=== PATIENT | female | born 1970 | race Caucasian/White ===

== ENCOUNTER → 2019-08-08 | Outpatient (CLI) | payer OTHER ==
--- NOTE | 2019-08-08 12:05 | Diagnostic Imaging Report ---
INDICATION: Right-sided back pain. TIME OF EXAM: 11:48 a.m. COMPARISON: No prior studies are available for comparison. The heart size is normal. The pulmonary vascularity is unremarkable. The lungs are clear. No infiltrate, effusion or pneumothorax is detected. IMPRESSION: No acute cardiopulmonary process is detected. Dictated by: Dictated on workstation # [id number]
[2019-08-08 12:37] LABS: EOSINOPHILS % (AUTO) 1 % (0-10); HEMATOCRIT 43 % (35-52); HEMOGLOBIN 13.8 G/DL (11.5-16.0); LYMPHOCYTES % (AUTO) 24 % (12-44); MEAN CORPUSCULAR HEMOGLOBIN 29 PG (25-34); MEAN CORPUSCULAR HGB CONC 32 G/DL (32-36); MEAN CORPUSCULAR VOLUME 89 FL (80-99); MEAN PLATELET VOLUME 10.3 FL (7.4-10.4); MONOCYTES % (AUTO) 5 % (0-12); NEUTROPHILS % (AUTO) 70 % (42-75); PLATELET COUNT 218 10^3/uL (130-400); RED CELL DISTRIBUTION WIDTH 12.6 % (10.0-14.5); WHITE BLOOD COUNT 8.7 10^3/uL (4.3-11.0)
[2019-08-08 12:38] LABS: BASOPHILS % (AUTO) 0 % (0-10); EOSINOPHILS # (AUTO) 0.1 10^3/uL (0.0-0.3); LYMPHOCYTES # (AUTO) 2.1 X 10^3 (1.0-4.0); MONOCYTES # (AUTO) 0.4 X 10^3 (0.0-1.0); NEUTROPHILS # (AUTO) 6.1 X 10^3 (1.8-7.8)
[2019-08-08 12:58] LABS: POTASSIUM 4.3 MMOL/L (3.6-5.0); SODIUM 139 MMOL/L (135-145)
[2019-08-08 12:59] LABS: ALANINE AMINOTRANSFERASE 15 U/L (0-55); ALKALINE PHOSPHATASE 70 U/L (40-136); AMYLASE 45 U/L (25-125); BILIRUBIN,TOTAL 0.4 MG/DL (0.1-1.0); BUN/CREATININE RATIO 21; CALCIUM 9.4 MG/DL (8.5-10.1); CARBON DIOXIDE 23 MMOL/L (21-32); CHLORIDE 102 MMOL/L (98-107); CREATININE SERUM 0.76 MG/DL (0.60-1.30); GFR ESTIMATED > 60; GLUCOSE 84 MG/DL (70-105); LIPASE 43 U/L (8-78); TOTAL PROTEIN 7.6 GM/DL (6.4-8.2)
== END ==
LOC: RAD FS 11:29
PROVIDERS: ATTEND Nurse Practitioner Family
DX: M54.9 Dorsalgia, unspecified (principal)
CPT/HCPCS: 36415; 71046; 80053; 82150; 83690; 85025

== ENCOUNTER → 2019-09-20 | Outpatient (CLI) | payer OTHER ==
--- NOTE | 2019-09-20 09:02 | Diagnostic Imaging Report ---
EXAMINATION: CT Abdomen Pelvis without contrast. TECHNIQUE: Multiple contiguous axial images were obtained through the abdomen and pelvis without the use of intravenous contrast. All CT scans use one or more of the following dose optimizing techniques: automated exposure control, MA and/or KvP adjustment based on a patient size and exam type, or iterative reconstruction. INDICATION: Constipation and abdominal pain. COMPARISON: 02/05/2013 FINDINGS: Limited views of the lower thorax are unremarkable. The liver is normal without focal lesion. There is no biliary ductal dilation. Gallbladder is surgically absent. Pancreas is normal. Spleen is normal. Adrenal glands are normal. There are bilateral peripelvic cysts. There is a nonobstructing 9 mm stone in the lower pole of the left kidney. There are two tiny nonobstructing stones in the right kidney measuring less than 2 mm. There is no hydronephrosis. Urinary bladder is normal. Visualized bowel is normal in caliber without obstruction or inflammation. There is a suture line along the stomach. No free fluid or air. No abdominal or pelvic lymphadenopathy. Aorta is normal in caliber without aneurysm. There are no suspicious osseus lesions. IMPRESSION: 1. Bilateral nonobstructing renal stones, otherwise no acute abnormality in the abdomen or pelvis. Dictated by: Dictated on workstation # [id number]
== END ==
LOC: RAD FS 08:27
PROVIDERS: ATTEND Nurse Practitioner
DX: N20.0 Calculus of kidney (principal); K59.00 Constipation, unspecified; R14.3 Flatulence
CPT/HCPCS: 74176

== ENCOUNTER → 2019-10-17 | Outpatient (CLI) | payer OTHER ==
[2019-10-18 15:26] LABS: FREE T4 (FREE THYROXINE) 1.12 NG/DL (0.70-1.48)
== END ==
LOC: LAB FS 13:16
PROVIDERS: ATTEND Family Medicine
DX: R41.3 Other amnesia (principal)
CPT/HCPCS: 36415; 82607; 84439; 84443

== ENCOUNTER → 2019-10-30 | Outpatient (CLI) | payer OTHER ==
--- NOTE | 2019-10-30 17:37 | Diagnostic Imaging Report ---
INDICATION: Shoulder pain COMPARISON: None. FINDINGS: Single frontal radiographic view of the left shoulder was obtained. There is no fracture, dislocation, or other acute bony abnormality identified on this single view. The soft tissues appear unremarkable. No radiopaque foreign bodies identified. The visualized portions of the left lung are clear. IMPRESSION: Unremarkable single radiographic view of the left shoulder. Dictated by: Dictated on workstation # [id number]
--- NOTE | 2019-10-30 17:37 | Diagnostic Imaging Report ---
INDICATION: Pain extending into the left arm. TIME OF EXAM 5:07 PM Three-view cervical spine demonstrates normal curvature and alignment. Vertebral body heights and disc spaces are well-maintained. No fracture or subluxation is seen. Odontoid is intact. Prevertebral tissues are within normal limits. IMPRESSION: No acute bony abnormality is detected. Dictated by: Dictated on workstation # [id number]
== END ==
LOC: RAD FS 16:55
PROVIDERS: ATTEND Family Medicine
DX: R42 Dizziness and giddiness (principal); M25.512 Pain in left shoulder
CPT/HCPCS: 72040; 73020

== ENCOUNTER → 2019-11-28 | Outpatient (CLI) | payer OTHER ==
[2019-11-28 11:37] LABS: SODIUM 138 MMOL/L (135-145)
[2019-11-28 11:38] LABS: ALANINE AMINOTRANSFERASE 14 U/L (0-55); ALBUMIN 3.9 GM/DL (3.2-4.5); ALKALINE PHOSPHATASE 71 U/L (40-136); BILIRUBIN,TOTAL 0.4 MG/DL (0.1-1.0); BUN/CREATININE RATIO 21; CALCIUM 9.1 MG/DL (8.5-10.1); CARBON DIOXIDE 26 MMOL/L (21-32); CHLORIDE 102 MMOL/L (98-107); GFR ESTIMATED > 60; GLUCOSE 86 MG/DL (70-105); POTASSIUM 4.2 MMOL/L (3.6-5.0)
[2019-11-28 15:06] LABS: CHOLESTEROL 178 MG/DL (< 200); HDL CHOLESTEROL 73 MG/DL (40-60); TRIGLYCERIDES 88 MG/DL (<150); VLDL CHOLESTEROL 18 MG/DL (5-40)
== END ==
LOC: LAB FS 10:03
PROVIDERS: ATTEND Family Medicine
DX: Z00.00 Encounter for general adult medical examination without abnormal findings (principal)
CPT/HCPCS: 36415; 80053; 80061

== ENCOUNTER → 2019-11-30 | Outpatient (CLI) | payer OTHER ==
--- NOTE | 2019-11-30 14:27 | Diagnostic Imaging Report ---
INDICATION: Neck pain radiating to the left arm. TIME OF EXAM: 1:40 PM Three-view cervical spine were obtained. Curvature and alignment is normal. Disc spaces are fairly well-maintained apart from mild disc space narrowing at C6-C7 level with mild marginal osteophytes consistent with degenerative disc disease. Remaining disks are well-maintained. Vertebral body heights are unremarkable. Prevertebral tissues are unremarkable. Odontoid appears intact. IMPRESSION: Lower cervical spondylosis. No acute bony abnormality is detected. Dictated by: Dictated on workstation # [id number]
== END ==
LOC: RAD FS 13:21
PROVIDERS: ATTEND Nurse Practitioner Family
DX: M25.512 Pain in left shoulder (principal); M25.522 Pain in left elbow; M79.2 Neuralgia and neuritis, unspecified; M47.812 Spondylosis without myelopathy or radiculopathy, cervical region
CPT/HCPCS: 72040

== ENCOUNTER → 2020-06-10 | Outpatient (CLI) | payer OTHER ==
--- NOTE | 2020-06-10 12:49 | Diagnostic Imaging Report ---
Right elbow at 1032 hours. INDICATION: Elbow pain. 3 views were obtained. There are no prior studies available for comparison. FINDINGS: There is no fracture, dislocation or acute bony abnormality evident. The elbow joint is fairly well-maintained. The posterior fat-pad is not elevated. The soft tissues are unremarkable. There are small calcifications in the soft tissues medial to the medial epicondyle of the distal humerus and proximal ulna. These are of uncertain etiology but unlikely to be clinically significant. IMPRESSION: There is no evidence for an acute bony abnormality. Dictated by: Dictated on workstation # [id number]
--- NOTE | 2020-06-10 12:51 | Diagnostic Imaging Report ---
EXAMINATION: Acute abdomen series at 10:20 a.m. INDICATION: Abdominal pain. FINDINGS: The accompanying erect PA chest shows the heart size to be within normal limits and stable when compared to 08/08/2019. The lungs are clear. There is no sign of failure, pneumonia, or pleural effusion. There is no pneumoperitoneum identified. The supine and erect views of the abdomen were obtained. There is gas in both the large and small bowel in a nonspecific fashion. This appearance is similar to the gravel wheeler film from the CT abdomen/pelvis exam of 09/20/2019. There is no evidence for a bowel obstruction. The nephrolithiasis on the left seen on the CT exam is not as well visualized on this study. There does appear to be a small calcification overlying the left kidney. Also, on the erect view, there is a suggestion of a 7 cm rounded soft tissue density in the region of the right kidney. In reviewing the CT exam, there was a 4.5 cm cyst in this area. Consequently, I am not certain that this finding is related to the cyst seen on the CT exam. This could be secondary to the normal inferior pole of the right kidney itself. The possibility of a renal mass should still be considered. Either ultrasound or CT would be recommended for further evaluation. The osseous structures are intact. IMPRESSION: 1. The bowel gas pattern is nonspecific. There is no acute abnormality identified. 2. The left nephrolithiasis seen previously is not as conspicuous on this exam. 3. The 7 cm rounded soft tissue density overlying the inferior pole of the right kidney is of uncertain etiology. Considerations and recommendations, as above. Dictated by: Dictated on workstation # [id number]
== END ==
LOC: RAD FS 10:03
PROVIDERS: ATTEND Nurse Practitioner Family
DX: R10.12 Left upper quadrant pain (principal); N20.0 Calculus of kidney; N28.89 Other specified disorders of kidney and ureter; M25.521 Pain in right elbow; R22.31 Localized swelling, mass and lump, right upper limb
CPT/HCPCS: 73080; 74022

== ENCOUNTER → 2020-07-21 | Outpatient (CLI) | payer OTHER ==
--- NOTE | 2020-07-21 15:08 | Diagnostic Imaging Report ---
PROCEDURE: MR imaging cervical spine without contrast. TECHNIQUE: Multiplanar, multisequence MR imaging of the cervical spine was performed without contrast. INDICATION: Neck pain. COMPARISON: Cervical spine radiographs 11/30/2019. FINDINGS: Normal alignment. Vertebral body heights are preserved. Normal bone marrow signal. No abnormal signal in the cervical spinal cord. The visualized paravertebral soft tissues are unremarkable. C2-C3: Normal. C3-C4: Uncovertebral joint hypertrophy results in mild left neural foraminal narrowing, no spinal canal narrowing. C4-C5: Normal. C5-C6: Small annular disc bulge results in mild bilateral neural foraminal narrowing. Mild spinal canal narrowing. C6-C7: Broad-based central disc protrusion results in moderate to severe spinal canal stenosis. Severe left and moderate right neural foraminal narrowing. C7-T1: Normal. IMPRESSION: Broad-based central disc protrusion at C6-C7 results in moderate to severe spinal canal stenosis. There is also severe left and moderate right neural foraminal narrowing at this level. No other substantial neural impingement. No abnormal signal in the cervical spinal cord. Dictated by: Dictated on workstation # [id number]
== END ==
LOC: RAD 10:51
PROVIDERS: ATTEND Nurse Practitioner Family
DX: M50.223 Other cervical disc displacement at C6-C7 level (principal); M48.02 Spinal stenosis, cervical region
CPT/HCPCS: 72141

== ENCOUNTER → 2021-04-21 | Outpatient (CLI) | payer OTHER ==
--- NOTE | 2021-04-21 11:23 | Diagnostic Imaging Report ---
Bilateral hand pain 1052 hours. INDICATION: Hand pain. 3 views of each hand were obtained. There are no prior studies available for comparison. FINDINGS: There is no fracture, dislocation or acute bony abnormality evident. The osseous structures of both hands seem well mineralized and there are no significant arthritic changes evident. The soft tissues are unremarkable. IMPRESSION: There is no evidence for an acute bony abnormality. Dictated by: Dictated on workstation # [id number]
== END ==
LOC: RAD FS 10:34
PROVIDERS: ATTEND Nurse Practitioner Family
DX: M79.641 Pain in right hand (principal); M79.642 Pain in left hand

== ENCOUNTER → 2021-07-09 | Outpatient (CLI) | payer OTHER ==
[~2021-07-09] VITALS: Ht 165 cm; Wt 114.5 kg
[~2021-07-09] MED LIST: ACETAMINOPHEN 500 MG TAB (TYLENOL) PO PRN; EPINEPHrine INJECTION 1 MG/ML AMP IM PRN; ONDANSETRON 4 MG/2 ML (SDV) Z0FRAN IV PRN; SOTROVIMAB 500 MG/NS 100 ML IVPB IV ONE; diphenhydrAMINE 50 MG/ML INJ (BENADRYL) IV PRN
[2021-07-09 10:53] VITALS: BP 162/92
[2021-07-09 10:59] VITALS: BP 162/92
[2021-07-09 13:25] VITALS: BP 153/89
== END ==
LOC: INFUSION 10:32
PROVIDERS: ATTEND Nurse Practitioner Family
DX: U07.1 COVID-19 (principal)

== ENCOUNTER 2022-04-02 16:35 | Emergency (ER) | payer OTHER ==
[~2022-04-02] VITALS: Ht 165.1 cm; Wt 111.0 kg
[2022-04-02 16:38] VITALS: BP 157/92
[2022-04-02] MEDS ORDERED: ONDANSETRON 4 MG/2 ML (SDV) Z0FRAN IVP ONE (17:00)
[2022-04-02] MEDS ORDERED: fentaNYL INJ 100 MCG/2 ML AMP IVP ONE (17:00)
[2022-04-02 17:19] LABS: BASOPHILS % (AUTO) 0 % (0-10); EOSINOPHILS % (AUTO) 0 % (0-10); HEMATOCRIT 41 % (35-52); HEMOGLOBIN 13.5 g/dL (11.5-16.0); LYMPHOCYTES # (AUTO) 1.5 10^3/uL (1.0-4.0); LYMPHOCYTES % (AUTO) 11 % (12-44); MEAN CORPUSCULAR HEMOGLOBIN 29 pg (25-34); MEAN CORPUSCULAR HGB CONC 33 g/dL (32-36); MEAN CORPUSCULAR VOLUME 85 fL (80-99); MEAN PLATELET VOLUME 10.3 fL (9.0-12.2); MONOCYTES # (AUTO) 0.6 10^3/uL (0.0-1.0); MONOCYTES % (AUTO) 5 % (0-12); NEUTROPHILS # (AUTO) 11.3 10^3/uL (1.8-7.8); NEUTROPHILS % (AUTO) 83 % (42-75); PLATELET COUNT 238 10^3/uL (130-400); WHITE BLOOD COUNT 13.7 10^3/uL (4.3-11.0)
[2022-04-02 17:35] LABS: ALBUMIN 4.4 GM/DL (3.2-4.5); BILIRUBIN,TOTAL 0.4 MG/DL (0.1-1.0); CREATININE SERUM 1.09 MG/DL (0.60-1.30); POTASSIUM 2.7 MMOL/L (3.6-5.0); TOTAL PROTEIN 7.7 GM/DL (6.4-8.2)
[2022-04-02] MEDS ORDERED: KCL 20 MEQ TAB (K-DUR) PO ONE (17:45)
[2022-04-02 17:50] LABS: BILIRUBIN,URINE NEGATIVE (NEGATIVE); CLARITY,URINE CLEAR; COLOR,URINE YELLOW; GLUCOSE, URINE (UA) NEGATIVE (NEGATIVE); KETONES,URINE 2+ (NEGATIVE); LEUKOCYTE ESTERASE ,URINE NEGATIVE (NEGATIVE); NITRITE,URINE NEGATIVE (NEGATIVE); PH,URINE 5.5 (5-9); PROTEIN,URINE NEGATIVE (NEGATIVE)
[2022-04-02 17:52] LABS: BACTERIA,URINE TRACE /HPF; RBC,URINE >100 /HPF
[2022-04-02] MEDS ORDERED: HOLD METFORMIN - RECEIVED CONTRAST 20 ML VIAL IV SCH (18:30)
[2022-04-02] MEDS ORDERED: CATHETER FLUSH 10 ML SYR IV PRN (18:30)
[2022-04-02] MEDS ORDERED: IOHEXOL 350 MG/ML 100 ML (OMNIPAQUE 350) VIAL IV ONE (18:30)
[2022-04-02] MEDS ORDERED: NS 100 ML (IVPB) BAG IV ONE (18:30)
--- NOTE | 2022-04-02 18:48 | Diagnostic Imaging Report ---
EXAMINATION: CT abdomen and pelvis with intravenous contrast. TECHNIQUE: Multiple contiguous axial images were obtained through the abdomen and pelvis after the uneventful administration of intravenous contrast. All CT scans use one or more of the following dose optimizing techniques: automated exposure control, MA and/or KvP adjustment based on patient size and exam type or iterative reconstruction. HISTORY: RUQ pain. COMPARISON: 09/20/2019. FINDINGS: Lung bases: The lung bases are clear. Solid organs: The liver is normal without focal lesion. The gallbladder is surgically absent. There is no biliary ductal dilation. Pancreas is normal. Spleen is normal. Adrenal glands are normal. There is a 0.6 cm calculus within the proximal right ureter resulting in moderate hydronephrosis. There appear to be superimposed bilateral renal sinus cysts which require no follow-up. Bowel: Surgical changes of the stomach. No bowel obstruction. The colon is unremarkable. No findings of acute appendicitis. Peritoneum: There is no intraperitoneal free fluid or free air. No suspicious lymphadenopathy. Vasculature: Normal without aneurysm. Musculoskeletal: No suspicious osseous lesion or compression fracture. Pelvis: The uterus and adnexa are normal. The urinary bladder is normal. IMPRESSION: A 0.6 cm stone within the proximal right ureter results in mild right hydronephrosis. Dictated by: Dictated on workstation # [id number]
[2022-04-02] MEDS ORDERED: KETOROLAC 30 MG/ML VIAL IVP ONE (19:15)
--- NOTE | 2022-04-02 19:29 | ED Abdominal Pain ---
General Chief Complaint: Abdominal/GI Problems Stated Complaint: ABD PAIN Nursing Triage Note: Patient reports she has had intermittent RLQ/right flank pain since this morning. She reports she has a history of kidney stones with lithotripsy and stent placement in the past. Patient referred to the ED by walk-in care, walk-in care provider states patient had RBCs in her urine. Source of Information: Patient Exam Limitations: No Limitations History of Present Illness Date Seen by Provider: Apr 02, 2022 Time Seen by Provider: 18:00 Initial Comments Patient is a 51-year-old female with history of kidney stones who presents with right flank pain and hematuria starting earlier today. Pain is moderate to severe intermittent and waxes and wanes and is not relieved with position change or movement. Patient also reports right lower quadrant pain/tenderness. She is currently taking medications for constipation. No fever chills, nausea vomiting or sweats. No other acute symptoms or complaints. Timing/Duration: 4-6 Hours Severity/Quality: Moderate Location: Other Radiation: Other Activities at Onset: Other Modifying Factors: Improves With Other Associated Symptoms: Other Allergies and Home Medications Allergies Coded Allergies: Penicillins (Unverified Allergy, Unknown, 07/09/21) Patient Home Medication List Home Medication List Reviewed: Yes Review of Systems Review of Systems Constitutional: see HPI Genitourinary: See HPI Past Pbbgqut-Hnyuuw-Xguohx Hx Patient Social History Tobacco Use?: No Substance use?: No Alcohol Use?: No Pt feels they are or have been: No Past Medical History Surgery/Hospitalization HX: kidney stones, lithotripsy, rectocele, appendectomy, cholecystectomy, tonsillectomy, gastric sleeve, Physical Exam Vital Signs Vital Signs - First Documented 04/02/22 16:38 Temp 36.7 Pulse 87 Resp 20 B/P (MAP) 157/92 (113) Pulse Ox 97 O2 Delivery Room Air Capillary Refill : Less Than 3 Seconds Height/Weight/BMI Height: '" Weight: lbs. oz. kg; 40.00 BMI Method: General Appearance: WD/WN, no apparent distress HEENT: PERRL/EOMI Respiratory: lungs clear Gastrointestinal: soft, tenderness Back: no CVA tenderness Neurologic/Psychiatric: alert, oriented x 3 Focused Exam Sepsis Stage: Ruled Out Progress/Results/Core Measures Results/Orders Lab Results Laboratory Tests Test 04/02/22 17:15 04/02/22 17:45 Range/Units White Blood Count 13.7 H 4.3-11.0 10^3/uL Red Blood Count 4.74 3.80-5.11 10^6/uL Hemoglobin 13.5 11.5-16.0 g/dL Hematocrit 41 35-52 % Mean Corpuscular Volume 85 80-99 fL Mean Corpuscular Hemoglobin 29 25-34 pg Mean Corpuscular Hemoglobin Concent 33 32-36 g/dL Red Cell Distribution Width 13.2 10.0-14.5 % Platelet Count 238 130-400 10^3/uL Mean Platelet Volume 10.3 9.0-12.2 fL Immature Granulocyte % (Auto) 1 % Neutrophils (%) (Auto) 83 H 42-75 % Lymphocytes (%) (Auto) 11 L 12-44 % Monocytes (%) (Auto) 5 0-12 % Eosinophils (%) (Auto) 0 0-10 % Basophils (%) (Auto) 0 0-10 % Neutrophils # (Auto) 11.3 H 1.8-7.8 10^3/uL Lymphocytes # (Auto) 1.5 1.0-4.0 10^3/uL Monocytes # (Auto) 0.6 0.0-1.0 10^3/uL Eosinophils # (Auto) 0.0 0.0-0.3 10^3/uL Basophils # (Auto) 0.0 0.0-0.1 10^3/uL Immature Granulocyte # (Auto) 0.2 H 0.0-0.1 10^3/uL Sodium Level 137 135-145 MMOL/L Potassium Level 2.7 L 3.6-5.0 MMOL/L Chloride Level 92 L 98-107 MMOL/L Carbon Dioxide Level 31 21-32 MMOL/L Anion Gap 14 5-14 MMOL/L Blood Urea Nitrogen 23 H 7-18 MG/DL Creatinine 1.09 0.60-1.30 MG/DL Estimat Glomerular Filtration Rate 62 BUN/Creatinine Ratio 21 Glucose Level 131 H 70-105 MG/DL Calcium Level 10.0 8.5-10.1 MG/DL Corrected Calcium 9.7 8.5-10.1 MG/DL Total Bilirubin 0.4 0.1-1.0 MG/DL Aspartate Amino Transf (AST/SGOT) 22 5-34 U/L Alanine Aminotransferase (ALT/SGPT) 17 0-55 U/L Alkaline Phosphatase 78 40-136 U/L Total Protein 7.7 6.4-8.2 GM/DL Albumin 4.4 3.2-4.5 GM/DL Lipase 40 8-78 U/L Urine Color YELLOW Urine Clarity CLEAR Urine pH 5.5 5-9 Urine Specific [place] 1.025 H 1.016-1.022 Urine Protein NEGATIVE NEGATIVE Urine Glucose (UA) NEGATIVE NEGATIVE Urine Ketones 2+ H NEGATIVE Urine Nitrite NEGATIVE NEGATIVE Urine Bilirubin NEGATIVE NEGATIVE Urine Urobilinogen 0.2 < = 1.0 MG/DL Urine Leukocyte Esterase NEGATIVE NEGATIVE Urine RBC (Auto) 3+ H NEGATIVE Urine RBC >100 H /HPF Urine WBC NONE /HPF Urine Crystals NONE /LPF Urine Bacteria TRACE /HPF Urine Casts NONE /LPF Urine Mucus NEGATIVE /LPF Urine Culture Indicated NO My Orders Orders - LETI CHAPMAN DO Cbc With Automated Diff (04/02/22 16:47) Comprehensive Metabolic Panel (04/02/22 16:47) Lipase (04/02/22 16:47) Ua Culture If Indicated (04/02/22 16:47) Ct Abdomen/Pelvis W (04/02/22 16:47) Fentanyl Inj (Sublimaze Injection) (04/02/22 17:00) Ondansetron Injection (Zofran Injectio (04/02/22 17:00) Potassium Chloride (Tablet) (K Dur Table (04/02/22 17:45) Iohexol Injection (Omnipaque 350 Mg/Ml 1 (04/02/22 18:30) Received Contrast (Hold Metformin- Contr (04/02/22 18:30) Sodium Chloride Flush (Catheter Flush Sy (04/02/22 18:30) Ns (Ivpb) (Sodium Chloride 0.9% Ivpb Bag (04/02/22 18:30) Ketorolac Injection (Toradol Injection) (04/02/22 19:15) Medications Given in ED Current Medications Medications Dose Ordered Sig/Nicole Route Start Time Stop Time Status Last Admin Dose Admin Fentanyl Citrate 50 mcg ONCE ONCE IVP 04/02/22 17:00 04/02/22 17:01 DC 04/02/22 17:08 50 MCG Iohexol 100 ml ONCE ONCE IV 04/02/22 18:30 04/02/22 18:31 DC 04/02/22 18:38 80 ML Ketorolac Tromethamine 30 mg ONCE ONCE IVP 04/02/22 19:15 04/02/22 19:16 DC 04/02/22 19:19 30 MG Ondansetron HCl 4 mg ONCE ONCE IVP 04/02/22 17:00 04/02/22 17:01 DC 04/02/22 17:09 4 MG Potassium Chloride 40 meq ONCE ONCE PO 04/02/22 17:45 04/02/22 17:46 DC 04/02/22 19:19 40 MEQ Sodium Chloride 10 ml NEEDED PRN IV 04/02/22 18:30 04/02/22 18:39 10 ML Sodium Chloride 100 ml ONCE ONCE IV 04/02/22 18:30 04/02/22 18:31 DC 04/02/22 18:38 100 ML Vital Signs/I&O 04/02/22 16:38 Temp 36.7 Pulse 87 Resp 20 B/P (MAP) 157/92 (113) Pulse Ox 97 O2 Delivery Room Air Blood Pressure Mean: 113 Departure Communication (Admissions) CT abdomen pelvis: Proximal right ureteral stone with mild mild hydronephrosis. Right flank pain with noninfected proximal kidney stone. No UTI. Creatinine stable. Potassium replaced. Recommendations are supportive care watchful waiting PCP follow-up. Return precautions reviewed. Patient verbalizes understanding agreement discharge instructions prior to departure Impression Primary Impression: Rt flank pain Additional Impression: Ureteral calculi Disposition: HOME, SELF-CARE Condition: Stable Departure-Patient Inst. Decision time for Depature: 19:27 Referrals: [facility] (PCP) Primary Care Physician MARQUISE JONES APRN (Family) Primary Care Physician Patient Instructions: Kidney Stone, Adult ED Add. Discharge Instructions: You were evaluated in the emergency department for right flank pain. CT scan was performed which shows a 6 mm stone just below the level of your right kidney. Please increase fluids take pain and nausea medication as direct and strain your urine for passage of a stone. Follow-up with your urologist next week.. Your lab work also reveals a low potassium level. Please take new potassium pills as directed and follow-up with your PCP next week to reevaluate potassium. In the meantime you develop any new or worsening symptoms, return to the ED. All discharge instructions reviewed with patient and/or family. Voiced understanding. Scripts Potassium Chloride (Potassium Chloride) 20 Meq Tablet.er 20 MEQ PO DAILY, #10 TAB Prov: LETI CHAPMAN DO 04/02/22 Ondansetron (Ondansetron Odt) 4 Mg Tab.rapdis 4 MG SL Q4H PRN for NAUSEA/VOMITING, #10 TAB Prov: LETI CHAMPAN DO 04/02/22 Hydrocodone/Acetaminophen (Hydrocodone-Acetamin 5-325 mg) 5 Mg-325 Mg Tablet 1 TAB PO Q4H PRN for PAIN-MODERATE (5-7), #12 TAB Prov: LETI CHAPMAN DO 04/02/22 LETI CHAPMAN DO Apr 02, 2022 19:29
[2022-04-02] MEDS ORDERED: POTA-51 PO (19:31)
[2022-04-02] MEDS ORDERED: ACHD5005 PO (19:31)
[2022-04-02] MEDS ORDERED: ONDA4TAB11 SL (19:31)
== END 2022-04-02 19:40 | disposition home or self-care (01) ==
LOC: EDUNIT# 16:35 → ER FS 16:36
DX: N13.2 Hydronephrosis with renal and ureteral calculous obstruction (principal); K59.00 Constipation, unspecified; Z90.49 Acquired absence of other specified parts of digestive tract; Z98.84 Bariatric surgery status; Z98.890 Other specified postprocedural states; Z28.310 Unvaccinated for COVID-19
CPT/HCPCS: 36415; 74177; 80053; 81000; 83690; 85025; Q9967